=== PATIENT | male | born 1990 | race African-American/Black ===

== ENCOUNTER 2019-02-20 00:05 | Emergency (ER) | payer BC, MEDICAID ==
[~2019-02-20] VITALS: Ht 177.8 cm; Wt 77.1 kg
[2019-02-20] MEDS ORDERED: GADOTERIDOL 279.3 MG/ML VIAL IV ONE (00:11)
--- NOTE | 2019-02-20 00:24 | NUR ---
PT AAOX4. AMBULATORY. PT C/O INTERMITENT NUMBNESS AND TINGLING SENSATION ON SPINE AND L ARM. PT STATED HE HAS BEEN POPPING HIS NECK FOR THE PAST 4 MONTHS. AROUND 8PM HE POPPED HIS NECK AND HE FELT A SHOOTING PAIN GO DOWN HIS BACK AND LEFT ARM. PT STATED HE THEN FELT NUMBNESS INTERMITENTLY. UPON ASSESSMENT PT C/O L ARM PAIN 3/10. NO NEURO DEFICIT. AWAITING MD FOR EVAL.
--- NOTE | 2019-02-20 00:33 | NUR ---
PATIENT TAKEN FOR CT
--- NOTE | 2019-02-20 00:50 | NUR ---
Patient easily aroused. VSS. Friend at bedside
--- NOTE | 2019-02-20 01:46 | NUR ---
PAGED DR MELENDEZ. NO RESPONSE AT THIS TIME.
--- NOTE | 2019-02-20 01:53 | NUR ---
PAGED DR MELENDEZ, NO RESPONSE.
--- NOTE | 2019-02-20 01:55 | NUR ---
Patient is resting comfortably in bed. Easily aroused. VSS.
--- NOTE | 2019-02-20 01:58 | NUR ---
PAGED DR KELVIN WARREN. NO RESPONSE
--- NOTE | 2019-02-20 02:03 | NUR ---
PAGED DR HAYDEE ALANIS. NO RESPONSE
--- NOTE | 2019-02-20 02:14 | NUR ---
PAGED DR ALESIA BREWSTER. NO RESPONSE
--- NOTE | 2019-02-20 02:22 | NUR ---
PAGED DR DARYN HURTADOED. NO RESPONSE
[2019-02-20] MEDS ORDERED: IBUPROFEN 600 MG TABLET PO ONE ×2 (04:14→04:30)
--- NOTE | 2019-02-20 06:47 | NUR ---
TEXTED DR. ROD FOR MRI APPROVAL.
--- NOTE | 2019-02-20 07:43 | NUR ---
MRI APPROVED, BURGLARY INVESTIGATOR YANETH NOTIFIED VIA TEXT.
--- NOTE | 2019-02-20 08:48 | NUR ---
Patient asleep but arousable made aware for MRI non distress @ this time continue to monitor
--- NOTE | 2019-02-20 11:32 | NUR ---
Patient awake alert made aware awaiting for MRI result
--- NOTE | 2019-02-20 13:02 | NUR ---
Dr Pa @ bedside for DC home intruction given and result agrees to follow up with his PMD in AM
--- NOTE | 2019-02-20 13:03 | NUR ---
REmoved helplock LAC noted catgh intact no edema ,no redness no pain
[2019-02-20 13:04] VITALS: BP 97/132
--- NOTE | 2019-02-20 13:04 | NUR ---
Patient discharged to home in stable condition. Written and verbal after care instructions given. Patient verbalizes understanding of instruction.
== END 2019-02-20 13:05 | disposition home or self-care (01) ==
LOC: ER 00:10
DX: M54.12 Radiculopathy, cervical region (principal)
CPT/HCPCS: 72125; 72156; 99284; A9579